=== PATIENT | male | born 1990 | race African-American/Black ===

== ENCOUNTER 2025-01-07 07:33 | Emergency (ER) | payer OTHER, SELFPAY ==
[2025-01-07 07:38] VITALS: BP 136/100; PULSE 71; TEMP 36.7; O2SAT 100; BMI 31.2
--- NOTE | 2025-01-07 07:45 | ED.GENADUL1 ---
HPI HPI - General Adult General Chief complaint: Nausea/Vomiting/Diarrhea Stated complaint: NAUSEA/VOMITING Time Seen by Provider: 01/07/25 07:36 Source: patient Mode of arrival: ambulance Limitations: no limitations History of Present Illness HPI narrative: 34-year-old male presents to the emergency department for the feeling that something is stuck in his throat. 4 days ago he ate some barbecue and thinks he may have swallowed some aluminum foil. Last night he believes he fell asleep with a toothpick in his mouth and he feels like something is in his throat. He vomited and saw some blood. Related Data Home Medications ?Medication ?Instructions ?Recorded ?Confirmed No Known Home Medications 01/07/25 01/07/25 Allergies Allergy/AdvReac Type Severity Reaction Status Date / Time No Known Drug Allergies Allergy Verified 01/07/25 07:37 Review of Systems ROS Narrative A ten point review of systems is negative except as noted above. PFSH PFSH Social History Little interest or pleasure in doing things: not at all Feeling down, depressed, or hopeless: not at all Exam Narrative Exam Narrative: Nurses note and vital signs reviewed and patient is not hypoxic. General: The patient appears well and in no apparent distress. Patient is resting comfortably on cart. Skin: Warm, dry, no pallor noted. There is no rash noted. Head: Normocephalic, atraumatic Eye: Normal conjunctiva, no drainage Ears, Nose, Mouth, and Throat: oral mucosa is moist. Nares patent. He seems to be handling his oral secretions well. There are no palpable masses in his neck or throat area. No pharyngeal masses or swelling. Uvula midline. No swelling to the floor of his mouth. Cardiovascular: Regular Rate and Rhythm Respiratory: Patient is in no distress, no accessory muscle use, lungs are clear to auscultation, no wheezing, rales or rhonchi Back: non-tender GI: Soft and nontender Musculoskeletal: The patient has no evidence of calf tenderness, no pitting edema, symmetrical pulses noted bilaterally Neurological: A&O, normal speech Psychiatric: Cooperative Constitutional Vital Signs, click to edit/add: Last Vital Signs Temp 98.0 F 01/07/25 07:38 Pulse 71 01/07/25 07:38 Resp 18 01/07/25 07:38 BP 136/100 H 01/07/25 07:38 Pulse Ox 100 07/29/25 07:38 O2 Del Method Room Air 01/07/25 07:38 Course Vital Signs Vital signs: Vital Signs Temperature 98.0 F 01/07/25 07:38 Pulse Rate 71 01/07/25 07:38 Respiratory Rate 18 01/07/25 07:38 Blood Pressure 136/100 H 01/07/25 07:38 Pulse Oximetry 100 01/07/25 07:38 Oxygen Delivery Method Room Air 01/07/25 07:38 Temperature 98.0 F 01/07/25 07:38 Pulse Rate 71 01/07/25 07:38 Respiratory Rate 18 01/07/25 07:38 Blood Pressure 136/100 H 01/07/25 07:38 Pulse Oximetry 100 01/07/25 07:38 Oxygen Delivery Method Room Air 01/07/25 07:38 Medical Decision Making MDM Narrative Medical decision making narrative: His workup including CT neck is negative. There is no evidence of foreign body on physical exam or the CT scan. He is referred to ENT. He is able to drink liquids prior to being discharged. Treatment diagnosis and follow-up were discussed with the patient. Differential Diagnosis Differential Diagnosis: Foreign body, anxiety, esophageal stricture Lab Data Lab results reviewed: Yes I reviewed the patient's lab results Labs: Lab Results 01/07/25 Range/Units 07:50 WBC 6.8 (4.0-11.0) 10^3/uL RBC 5.09 (4.70-6.10) 10^6/uL Hgb 15.6 (14.0-18.0) g/dL Hct 45.7 (42.0-54.0) % MCV 89.8 (80.0-94.0) fL MCH 30.6 (25.9-34.0) pg MCHC 34.1 (29.9-35.2) g/dL RDW 13.7 (11.0-15.0) % Plt Count 276 (150-450) 10^3/uL MPV 8.8 L (9.5-13.5) fL Neut % (Auto) 42.0 L (43.0-75.0) % Lymph % (Auto) 33.8 (20.5-60.0) % [place] % (Auto) 17.6 H (1.7-12.0) % Eos % (Auto) 6.1 (0.9-7.0) % Baso % (Auto) 0.4 (0.2-2.0) % Neut # (Auto) 2.8 (1.4-6.5) 10^3/uL Lymph # (Auto) 2.3 (1.2-3.8) 10^3/uL [place] # (Auto) 1.2 H (0.3-0.8) 10^3/uL Eos # (Auto) 0.4 (0.0-0.7) 10^3/uL Baso # (Auto) 0.0 (0.0-0.1) 10^3/uL Abs Immat Gran (auto) 0.01 (0.00-0.03) 10^3/uL Imm/Tot Granulo (auto) 0.1 (0.0-0.5) % Sodium 139 (136-145) mmol/L Potassium 3.9 (3.5-5.1) mmol/L Chloride 101 (98-107) mmol/L Carbon Dioxide 28.2 (21.0-32.0) mmol/L Anion Gap 13.7 BUN 11.0 (7.0-18.0) mg/dL Creatinine 1.01 (0.70-1.30) mg/dL Est GFR ( Amer) >60 (>=60 mL/min/1.73m^2) Est GFR (Non-Af Amer) >60 (>=60 mL/min/1.73m^2) BUN/Creatinine Ratio 10.9 Glucose 97 (74-106) mg/dL Calcium 9.3 (8.5-10.1) mg/dL Imaging Data CT neck: Radiologist's impression: ITS Impressions Soft Tissue Neck CT 01/07/25 08:18 IMPRESSION: NO ACUTE NECK FINDINGS OR RADIOPAQUE FOREIGN BODIES. RIGHT MASTOID DISEASE. INCIDENTAL MEDIASTINAL LYMPH NODES, UNKNOWN SIGNIFICANCE. CLINICAL CORRELATION IS SUGGESTED. Impression dictated by: Manjula Brown M.D. 01/07/2025 8:42 AM Dictation Location: [place] [address] Electronically authenticated by: [id number] Y Date: 01/07/2025 08:42 Discharge Plan Discharge Chief Complaint: Nausea/Vomiting/Diarrhea Clinical Impression: Dysphagia Patient Disposition: Home, Self-Care Time of Disposition Decision: 09:07 Condition: Good Mode of Transportation: Private Vehicle Prescriptions / Home Meds: No Action No Known Home Medications Print Language: Maltese Instructions: Dysphagia (ED) Referrals: Rosa Bangura MD [Physician, Ear, Nose, Throat] Physician,Non-Staff, [Primary Care Provider] - 1 week
[2025-01-07 08:00] LABS: Hematocrit 45.7 % (42.0-54.0); Hemoglobin 15.6 g/dL (14.0-18.0); Immature Granulocytes Abs Auto 0.01 10^3/uL (0.00-0.03); Immature Granulocytes Pct Auto 0.1 % (0.0-0.5); Lymphocytes Absolute Auto 2.3 10^3/uL (1.2-3.8); Mean Corpuscular HGB Conc 34.1 g/dL (29.9-35.2); Mean Corpuscular Hemoglobin 30.6 pg (25.9-34.0); Mean Corpuscular Volume 89.8 fL (80.0-94.0); Platelet Count 276 10^3/uL (150-450); Red Blood Count 5.09 10^6/uL (4.70-6.10); White Blood Count 6.8 10^3/uL (4.0-11.0)
[2025-01-07 08:18] LABS: Anion Gap 13.7; Blood Urea Nitrogen 11.0 mg/dL (7.0-18.0); Calcium 9.3 mg/dL (8.5-10.1); Carbon Dioxide 28.2 mmol/L (21.0-32.0); Chloride 101 mmol/L (98-107); Estimated GFR (African America >60 (>=60 mL/min/1.73m^2); Estimated GFR (Non-African Ame >60 (>=60 mL/min/1.73m^2); Glucose 97 mg/dL (74-106); Potassium 3.9 mmol/L (3.5-5.1); Sodium 139 mmol/L (136-145)
--- NOTE | 2025-01-07 08:18 | CT_ITS ---
The [address] [address] Patient Name: ANTONIO PHAN MRN: [id number] date: 1990 Sex: M Assigned Patient Location: ER Current Patient Location: .[facility] Accession/Order Number: [id number] Exam Date: 01/07/2025 08:33 Report Date: 01/07/2025 08:42 At the request of: SHARIFA FERNANDEZ MD Procedure: CT soft tissue neck w con CT SOFT TISSUE NECK WITH CONTRAST CLINICAL DATA: Patient spitting blood for the past few days. Patient possibly swallowed aluminum foil. COMPARISON: None Spiral images were obtained through the neck following 100 mL of Omnipaque 300. This CT exam was performed using one or more following dose reduction techniques: Automated exposure control, adjustment of the mA and/or kV according to patient size, or use of iterative reconstruction technique. No thyroid nodularity is identified. The parotid and submandibular glands appear symmetric. There is no significant enlargement of the adenoids or tonsils. The epiglottis and vocal cords are within normal limits. The airway is patent throughout its course with normal appearance the mucosal surfaces. No radiopaque foreign bodies are visualized in the field of view. There are tiny shotty cervical lymph nodes. No prevertebral soft tissue swelling is seen. There is straightening of the normal cervical lordosis. The imaged paranasal sinuses are clear. There are some opacified right mastoid air cells. The upper imaged lungs show no contributory findings. There are mediastinal lymph nodes in the field of view measuring up to 13 mm in short axis dimension in the prevascular region. A paratracheal lymph node has some associated calcification. CT/CT soft tissue neck w con IMPRESSION: NO ACUTE NECK FINDINGS OR RADIOPAQUE FOREIGN BODIES. RIGHT MASTOID DISEASE. INCIDENTAL MEDIASTINAL LYMPH NODES, UNKNOWN SIGNIFICANCE. CLINICAL CORRELATION IS SUGGESTED. Impression dictated by: Manjula Brwon M.D. 01/07/2025 8:42 AM Dictation Location: [place] [address] Electronically authenticated by: [id number] Y Date: 01/07/2025 08:42
== END 2025-01-07 09:17 | disposition home or self-care (01) ==
PROVIDERS: Emergency Provider Emergency Medicine
DX: R13.10 Dysphagia, unspecified (principal); R09.A2 Foreign body sensation, throat
CPT/HCPCS: 36415; 70491; 80048; 85025; 99285; Q9967